=== PATIENT | female | born 1995 | race Caucasian/White ===

== ENCOUNTER 2016-08-25 23:05 | Inpatient (IN) | payer MEDICAID ==
[~2016-08-25] VITALS: Ht 165.1 cm; Wt 64.0 kg
[2016-08-25 23:10] VITALS: Ht 165.1 cm; Wt 64.0 kg
[2016-08-25 23:13] VITALS: BP 122/68; PULSE 82; RESP 18
[2016-08-25] MEDS ORDERED: FERR134T PO (23:24)
[2016-08-25] MEDS ORDERED: CALC600T11 PO (23:24)
[2016-08-25] MEDS ORDERED: PRENAT PO (23:24)
[2016-08-26] MEDS ORDERED: IBUPROFEN 600 MG TAB PO PRN
[2016-08-26] MEDS ORDERED: AMPICILLIN 2 GM/NS (PMX) 100 ML IV ONE
[2016-08-26] MEDS ORDERED: BUTORPHANOL 2 MG INJ IV PRN
[2016-08-26] MEDS ORDERED: LIDOCAINE 1% (MPF) 30 ML INJ INJ PRN
[2016-08-26] MEDS ORDERED: OXYTOCIN 30 UNITS/LR 500 ML IV SCH ×2
--- NOTE | 2016-08-26 00:11 | TRIAGE ---
OB Triage Datetime Report Generated by CPN: 08/26/2016 00:11 Datetime: 08/25/2016 23:37 Labor Evaluation Frequency: 2-4 Monitor Mode: External Duration (sec)2399: 60 Quality: Moderate Pattern: Normal: <= 5 Contractions in 10 Minutes Resting Tone [place]: Relaxed Heart Rate FHR Baseline Rate: 140 Monitor Mode: External US FHR Baseline Changes: No Baseline Change Variability: Moderate 6-25 bpm Accelerations: 15X15 Decelerations: None Category: Category I Vaginal Exam Dilatation (cms): 3.0 Effacement (%): 80 Station: -2 Exam By: E Jonas Membrane Status: Intact Vaginal Bleeding: Small Cervix, Consistency: Soft Cervix, Position: Midposition Presentation 'A': Cephalic Datetime: 08/25/2016 23:14 Maternal Assessment Level of Consciousness: Fully Conscious Headache: Denies Blurred Vision: No Nausea/Vomiting: Denies RUQ Epigastric Pain: Denies Facial Edema: None Monitor Mode: External Resting Tone [place]: Relaxed Monitor Mode: External US Comments: 150 Pain Assessment Pain Scale: 6 Pain Presence: Intermittent Pain Type: Contraction Pain Location: Abdomen Datetime: 08/25/2016 23:09 Time of Arrival: 08/25/2016 23:00 EGA: 38.1 Arrived By: Wheelchair Arrived From: Home Chief Complaint: w/ c/o ucs and spotting. No PNR available. Denies hx problems this . States had care in [place] until 1 month ago Movement: Present Contractions: Regular Time Contractions Began: 08/25/2016 21:00 Contractions: Q5 Rupture of Membranes: Denies Vaginal Bleeding: Scant Vaginal Discharge: Present Recent Sexual Intercouse: Denies Abdominal Trauma: Not Applicable Patient Complaints: Contractions Time Provider Notified: 08/25/2016 23:55 Provider Notified: Dr Eli Initial Plan: BEBE CARTAGENA
[2016-08-26] MEDS: LACTATED RINGER'S 1,000 ML IV SCH ×4 (01:00→14:44)
[2016-08-26] MEDS ORDERED: LACTATED RINGER'S 1,000 ML IV PRN (01:00)
[2016-08-26 01:05] LABS: ADD SCAN DIFF NO
[2016-08-26 01:08] LABS: BASOPHILS % 0.1 % (0.0-2.0); EOSINOPHILS % 0.1 % (0.0-7.0); HEMATOCRIT 34.5 % (37.0-47.0); HEMOGLOBIN 11.8 g/dl (12.0-16.0); LYMPHOCYTES # 3.3 10^3/ul (0.8-2.9); LYMPHOCYTES % 25.8 % (18.0-55.0); MEAN CORPUSCULAR HEMOGLOBIN 30.2 pg (29.0-33.0); MEAN CORPUSCULAR HGB CONC 34.2 g/dl (32.0-37.0); MEAN CORPUSCULAR VOLUME 88.2 fl (72.0-104.0); MEAN PLATELET VOLUME 10.9 fl (7.4-10.4); NEUTROPHIL # 8.4 10^3/ul (1.6-7.5); NEUTROPHILS % 65.6 % (30.0-74.0); PLATELET COUNT 204 10^3/UL (140-415); RED BLOOD COUNT 3.91 10^6/ul (4.20-5.40); RED CELL DISTRIBUTION WIDTH 12.5 % (11.5-14.5); WHITE BLOOD COUNT 12.8 10^3/ul (4.8-10.8)
[2016-08-26 01:19] LABS: INR 0.93; PROTIME 12.5 Sec (12.2-14.2)
[2016-08-26 01:20] LABS: PARTIAL THROMBOPLASTIN TIME 28.9 Sec (25.0-35.0)
[2016-08-26 01:50] LABS: BENZODIAZEPINES Negative (NEGATIVE); CANNABINOIDS Negative (NEGATIVE); COCAINE Negative (NEGATIVE); OPIATES Negative (NEGATIVE)
--- NOTE | 2016-08-26 01:51 | RADRPT ---
PROCEDURE: US OB. CLINICAL INDICATION: Estimated weight, labor. Clinical estimate gestational age is 38 weeks 2 days with estimated date of delivery 09/07/2016 TECHNIQUE: Multiple sonographic images of the pelvis were obtained. Transabdominal imaging only w as performed. The images were reviewed on a PACS workstation. COMPARISON: No prior studies are available for comparison. FINDINGS: There is a single live intrauterine gestation. Cardiac activity is present with 174 beats per minut e. There is a cephalic presentation. Measurements were made in order to determine age. The results are as follows: BPD = 9.11 cm, 37 weeks 0 days HC = 32.05 cm, 36 weeks 1 day AC = 32.39 cm, 36 weeks 2 days FL = 7.18 cm, 36 weeks 5 days. Estimated gestational age of approximately 36 weeks 4 days. The estimated date of delivery is 09/19/2016 The EFW = 2948 g, 6 pounds 8 ounces, 20.4%. The placenta is anterior and grade II. There is no evidence for an abruption. IMPRESSION: 1. Single live intrauterine gestation of approximately 36 weeks 4 days based on ultrasound measurem ents. 2. The estimated date of delivery is 09/19/2016. RPTAT: HJES .Chauncey Bailey MD, Date Time Electronically viewed and signed by .Chauncey Bailey MD, MD on 08/26/2016 01:50 .S/
[2016-08-26 02:19] LABS: BARBITURATES Negative (NEGATIVE)
[2016-08-26] MEDS: AMPICILLIN 1 GM/NS (PMX) 50 ML IVPB SCH ×4 (05:02→21:24)
[2016-08-26] MEDS ORDERED: MINERAL OIL LIGHT 10 ML VIAL TOP ONE (10:00)
[2016-08-26] MEDS ORDERED: FENTAnyl 2MCG/ML-ROPIV 0.2% 100 ML ONE (14:29)
[2016-08-26] MEDS ORDERED: NALOXONE (0.4 MG/ML) INJ IV PRN (15:00)
[2016-08-26] MEDS ORDERED: ONDANSETRON 4 MG INJ IV PRN (15:00)
[2016-08-26] MEDS ORDERED: FENTAnyl 2MCG/ML-ROPIV 0.2% 100 ML BAG EPI SCH (15:00)
--- NOTE | 2016-08-26 20:52 | HP ---
Date/Time of Note Date/Time of Note DATE: 08/26/16 TIME: 20:49 OB - History Hx of Present Free Text/Dictation 20 y/o female admitted in early labor Chief Complaint: labor pains Estimated Due Date: Sep 07, 2016 : 1 Para: 0 Care: Limited Care Ultrasounds: Normal mid trimester US Medical Complications: None Past Family/Social History * Past Medical, Surgical, Family and Obstetric Histories reviewed from chart. Blood Type: A+ Rubella: immune RPR/VDRL: Negative GBS Status: Negative HBsAG: Negative OB Admission Exam Vital Signs Vital Signs Vital Signs Date Time Temp Pulse Resp B/P Pulse Ox O2 Delivery O2 Flow Rate FiO2 08/25/16 23:13 98.4 82 18 122/68 Room Air Physical Exam Cervical Dilatation: 3cm Effacement: 75% Station: -2 Membranes: Intact Heart Rate: 130's Accelerations: Accelerations Present Decelerations: No Decelerations Varibility: Moderate Contractions on Admission: < 5 Minutes Apart Date/Time Contractions Began: 08/26/2016 Frequency of Contractions: q 2-5 Duration: >60 seconds Intensity: Moderate Last 72 hours Lab Results CBC & BMP 08/25/16 00:45 OB Assessment/Plan Other Assessment: term gestation labor pains Other plan: proceed with spontaneous labor VASHTI STARKS MD Aug 26, 2016 20:51
--- NOTE | 2016-08-26 20:55 | LDN ---
Date/Time of Note Date/Time of Note DATE: 08/26/16 TIME: 20:52 Delivery Summary of a viable infant over intact perineum Placenta Delivered: Spontaneously, Intact & Complete Meconium: none Perineum intact?: Yes Perineal laceration repair: 2 X vestibular lacerations on R and L inner laboa minora were repaired with 2 0 Vicryl and 4 0 Chromic Anesthesia type: Epidural Estimated blood loss: 200 Sponge & Needle done & correct: Yes All needle counts correct: Yes Any foreign bodies felt in the: No Problems: Delivery Information Sex Infant Sex: female Apgars 1 Minute: 8 5 Minute: 9 Suctioning Nose & mouth suctioned at genevieve: Yes Delee suction performed: No Umbilical Cord Umbilical cord with: 3 Vessels Cord presentations: no nuchal cord Cord Blood was obtained: Yes Mother & Baby Disposition Disposition Mom & Baby to Maternity; Good: Yes (mother and baby were recovered in good condition ) Mom transferred to: Other (maternity ) Baby to NICU: Yes VASHTI STARKS MD Aug 26, 2016 20:55
[2016-08-26 22:45] VITALS: BP 127/71; PULSE 70; RESP 18
[2016-08-26 23:15] VITALS: BP 124/58; PULSE 63; RESP 18
[2016-08-26] MEDS ORDERED: MISOPROSTOL 200 MCG TAB PR PRN ×2 (23:30)
[2016-08-26] MEDS ORDERED: DIBUCAINE 1% 30 GM OINT PR PRN (23:30)
[2016-08-26] MEDS ORDERED: BENZOCAINE 20% 56 ML SPRAY TOP PRN (23:30)
[2016-08-26] MEDS ORDERED: WITCH HAZEL/GLYCERIN PAD PR PRN (23:30)
[2016-08-26] MEDS ORDERED: ZOLPIDEM 5 MG TAB PO PRN (23:30)
[2016-08-26] MEDS ORDERED: METHYLERGONOVINE 0.2 MG INJ IM PRN ×2 (23:30)
[2016-08-26] MEDS ORDERED: ACETAMINOPHEN/CODEINE #3 TAB PO PRN ×2 (23:30)
[2016-08-26] MEDS ORDERED: LANOLIN 7 GM TUBE TOP PRN (23:30)
[2016-08-26] MEDS ORDERED: OXYTOCIN 30 UNITS/LR 500 ML IV PRN ×2 (23:30)
[2016-08-26] MEDS ORDERED: CARBOPROST 250 MCG INJ IM PRN ×2 (23:30)
[2016-08-27] MEDS: CEPHALEXIN 500 MG CAP PO SCH ×5 (00:10→23:30)
[2016-08-27] MEDS: IBUPROFEN 600 MG TAB PO SCH ×5 (00:11→23:30)
[2016-08-27] MEDS: LACTATED RINGER'S 1,000 ML IV* SCH ×2 (01:37→08:35)
[2016-08-27 04:40] VITALS: BP 119/56; PULSE 77; RESP 18
[2016-08-27 08:06] LABS: ADD SCAN DIFF NO
[2016-08-27 08:30] VITALS: BP 126/62; PULSE 88; RESP 16
[2016-08-27 08:42] LABS: BASOPHILS % 0.2 % (0.0-2.0); EOSINOPHILS % 0.1 % (0.0-7.0); HEMATOCRIT 29.5 % (37.0-47.0); HEMOGLOBIN 9.8 g/dl (12.0-16.0); LYMPHOCYTES # 2.5 10^3/ul (0.8-2.9); LYMPHOCYTES % 19.8 % (18.0-55.0); MEAN CORPUSCULAR HEMOGLOBIN 29.9 pg (29.0-33.0); MEAN CORPUSCULAR HGB CONC 33.2 g/dl (32.0-37.0); MEAN CORPUSCULAR VOLUME 89.9 fl (72.0-104.0); MEAN PLATELET VOLUME 10.8 fl (7.4-10.4); MONOCYTE # 0.9 10^3/ul (0.3-0.9); NEUTROPHIL # 9.2 10^3/ul (1.6-7.5); NEUTROPHILS % 72.4 % (30.0-74.0); PLATELET COUNT 142 10^3/UL (140-415); RED BLOOD COUNT 3.28 10^6/ul (4.20-5.40); RED CELL DISTRIBUTION WIDTH 12.8 % (11.5-14.5); WHITE BLOOD COUNT 12.7 10^3/ul (4.8-10.8)
[2016-08-27] MEDS: MAGNESIUM HYDROXIDE 30ML CUP PO SCH ×2 (09:55→21:39)
[2016-08-27] MEDS: SENNA/DOCUSATE NA (8.6MG/50MG) TAB PO SCH ×2 (09:55→21:39)
[2016-08-27 12:45] VITALS: BP 129/68; PULSE 79; RESP 16
[2016-08-27 16:15] VITALS: BP 119/63; PULSE 80; RESP 16
--- NOTE | 2016-08-27 17:53 | DS ---
Date/Time of Note Date/Time of Note home next day DATE: 08/27/16 TIME: 17:52 Obstetrical Discharge Record Final Diagnosis Final Diagnosis: Term delivered Other Final Diagnosis S/P vaginal delivery Vaginal Delivery Obstetrical Delivery: Spontaneous, Laceration, Repaired Condition on Discharge Physical Assessment Last Vitals: see nurses notes Voiding: Yes Bowel Movement: Yes Breast: Soft, non-tender, Filling Fundus: Firm Abdomen and Incision: soft bs + Episiotomy: NA Calf Tenderness: No Patient Condition: Good VASHTI STARKS MD Aug 27, 2016 17:53
[2016-08-27 20:00] VITALS: BP 125/83; RESP 20
[2016-08-28 04:18] VITALS: BP 112/64; PULSE 79; RESP 20
[2016-08-28] MEDS: CEPHALEXIN 500 MG CAP PO SCH ×2 (05:18→12:23)
[2016-08-28] MEDS: IBUPROFEN 600 MG TAB PO SCH ×2 (05:18→12:23)
[2016-08-28 08:00] VITALS: BP_SYST 121; PULSE 74
[2016-08-28] MEDS: MAGNESIUM HYDROXIDE 30ML CUP PO SCH (08:44)
[2016-08-28] MEDS: SENNA/DOCUSATE NA (8.6MG/50MG) TAB PO SCH (08:44)
[2016-08-28] MEDS ORDERED: MEASLES,MUMPS,RUBELLA VACCINE INJ SC* ONE (09:00)
[2016-08-28] MEDS ORDERED: VARICELLA VACCINE LIVE/PF 1,350 UNIT/0.5 ML ML SC* ONE (09:00)
[2016-08-28] MEDS ORDERED: DIPHTH/TET/ACEL PERTUSS (ADULT) 0.5 ML VIAL IM* ONE (09:00)
[2016-08-28] MEDS ORDERED: INFLUENZA VIRUS VACCINE 0.5 ML SYG IM* ONE (12:00)
--- NOTE | 2016-08-28 14:01 | PD.PPDC ---
HOME COMPANION Discharge Instruction Provider Information Physician Information 20 y/o femalle had vaginal delivery Diagnosis Final Diagnosis: S/P vaginal delivery Condition Patient Condition: Good Diet Diet: Resume Regular Diet Activity/Restrictions Activity: Normal Activity May Shower Restrictions: Nothing in the Vagina Return to Work or School: Oct 13, 2016 Follow-up Follow-up with Physician: 4, Week/Weeks (in clinic) Return to clinic for OB Instructions: Breast Tenderness Depression VASHTI STARKS MD Aug 28, 2016 14:01
[2016-08-28] MEDS ORDERED: IBUP-1542 PO (14:02)
== END 2016-08-28 15:30 | disposition home or self-care (01) | DRG 775 ==
LOC: OBT 23:05 → L-D 23:06 → OBT 23:56 → L-D 23:56 → PP1 08-26 22:37
PROVIDERS: ADMIT Obstetrics & Gynecology; ATTEND Obstetrics & Gynecology
PROC: 10E0XZZ Delivery of Products of Conception, External Approach (ICD-10-PCS; principal; 2016-08-26)
PROC: 0HQ9XZZ Repair Perineum Skin, External Approach (ICD-10-PCS; 2016-08-26)
DX: O70.9 Perineal laceration during delivery, unspecified (principal); Z37.0 Single live birth; Z3A.38 38 weeks gestation of pregnancy
CPT/HCPCS: 62319; 76815; 80307; 85025; 85610; 85730; 86592; 86900; 86901; 87340; 90686; 90715; 90716; G0463; J0290; J2590; J3010; J7120

== ENCOUNTER 2016-09-02 11:38 | Emergency (ER) | payer MEDICAID ==
[~2016-09-02] VITALS: Ht 165.1 cm; Wt 55.5 kg
[~2016-09-02 11:38] MED LIST: CALC600T11 PO; FERR134T PO; IBUP-1542 PO; PRENAT PO
[2016-09-02 11:49] VITALS: Ht 165.1 cm; Wt 55.5 kg
[2016-09-02 13:55] LABS: ADD SCAN DIFF NO
[2016-09-02 14:01] LABS: BASOPHILS % 0.3 % (0.0-2.0); EOSINOPHILS # 0.2 10^3/ul (0.0-0.5); EOSINOPHILS % 1.6 % (0.0-7.0); HEMATOCRIT 37.1 % (37.0-47.0); HEMOGLOBIN 12.2 g/dl (12.0-16.0); LYMPHOCYTES # 2.3 10^3/ul (0.8-2.9); LYMPHOCYTES % 22.2 % (18.0-55.0); MEAN CORPUSCULAR HEMOGLOBIN 29.8 pg (29.0-33.0); MEAN CORPUSCULAR HGB CONC 32.9 g/dl (32.0-37.0); MEAN CORPUSCULAR VOLUME 90.7 fl (72.0-104.0); MEAN PLATELET VOLUME 9.6 fl (7.4-10.4); MONOCYTE # 0.7 10^3/ul (0.3-0.9); NEUTROPHIL # 7.2 10^3/ul (1.6-7.5); NEUTROPHILS % 68.7 % (30.0-74.0); PLATELET COUNT 270 10^3/UL (140-415); RED BLOOD COUNT 4.09 10^6/ul (4.20-5.40); RED CELL DISTRIBUTION WIDTH 12.8 % (11.5-14.5); WHITE BLOOD COUNT 10.5 10^3/ul (4.8-10.8)
[2016-09-02 14:02] LABS: ADD UMIC YES; URINE BILIRUBIN (Dip) 1+ (NEGATIVE); URINE BLOOD (Dip) 3+ (NEGATIVE); URINE COLOR YELLOW (YELLOW); URINE GLUCOSE (Dip) NEGATIVE (NEGATIVE); URINE KETONES (Dip) NEGATIVE (NEGATIVE); URINE LEUKOCYTE ESTERASE (Dip) 1+ (NEGATIVE); URINE NITRITE (Dip) NEGATIVE (NEGATIVE); URINE TOTAL PROTEIN (Dip) 1+ (NEGATIVE); URINE UROBILINOGEN (Dip) 1.0 E.U./dL (0.1-1.0)
[2016-09-02 14:08] LABS: POTASSIUM 3.5 mmol/L (3.5-5.1)
[2016-09-02 14:11] LABS: ALBUMIN/GLOBULIN RATIO 1.14; BILIRUBIN,INDIRECT 0.2 mg/dl (0-1.1); BILIRUBIN,TOTAL 0.2 mg/dl (0.2-1.3); CREATININE 0.49 mg/dl (0.44-1.00); TOTAL PROTEIN 7.5 g/dl (6.1-8.1)
[2016-09-02 14:12] LABS: CALCIUM 9.1 mg/dl (8.4-10.2)
[2016-09-02 14:27] LABS: BACTERIA,URINE FEW; ICTOTEST NEGATIVE (NEGATIVE); URINE RBCS >200 /HPF (0)
--- NOTE | 2016-09-02 14:43 | RADRPT ---
PROCEDURE: US Pelvis CLINICAL INDICATION: post bleeding TECHNIQUE: Multiple sonographic images of the pelvis were obtained utilizing a transabdominal and endovaginal technique. The images were reviewed on a PACS workstation. COMPARISON: None. FINDINGS: The uterus measures 11.2 x 8.3 x 10.4 cm. The endometrial echo complex measures 32 mm in thickness and is heterogeneous consistent with the reported history of recent delivery. No foci of increased vascularity are noted in the endometrium to suggest retained products of conception. Bilateral ovaries are not visualized. There are no abnormal adnexal masses. No significant pelvic free fluid is identified. IMPRESSION: Thickening of the endometrium consistent with the reported history of recent . There are n o foci of increased vascularity in the endometrium to suggest retained products of conception. Bilateral ovaries are not visualized. There are no abnormal adnexal masses. RPTAT: EE Physician Giselle Date Time Electronically viewed and signed by Physician Giselle on 09/02/2016 14:43 /
--- NOTE | 2016-09-02 15:59 | QN ---
Documentation Comment 20 y/o female S/P vaginal delivery 08/25/2016 here C/O passage of bleed clots and "something " coming out of her vagina. This service was asked to evaluate patient fir "retained product of conception". Patient had uneventful delivery and PP care PMH and PSH are unremarkable allergies and habits denied. On P/E:patient is N OT in acute distress general P/E is WNL as well as her VS pelvic : Cx is closed : patient has minimal lochia Uterus 10-12 weeks size: non tender U/S: NO PRODUCT OF CONCEPTION CBC: WBC is normal, asa well as HCT and Hgb A: DOUBT retained product or endometritis P: will D/C home on cytotes x 24 hours only F/U in clinic on VASHTI STARKS MD Sep 02, 2016 15:59
--- NOTE | 2016-09-02 16:00 | PD.PPDC ---
DYEING MACHINE TENDER Discharge Instruction Provider Information Physician Information 20 y/o female here to R/O POC: :RULED OUT Diagnosis Final Diagnosis: Probably subinvolution Condition Patient Condition: Good Diet Diet: Resume Regular Diet Activity/Restrictions Activity: Normal Activity May Shower Restrictions: Nothing in the Vagina Return to Work or School: Oct 13, 2016 Follow-up Follow-up with Physician: 2, Day/Days (in clinic for F?U ) Return to clinic for CHIROPRACTIC NEUROLOGIST Instructions: Fever greater than 101 Chills Excessive Vaginal Bleeding OB Instructions: Depression VASHTI STARKS MD Sep 02, 2016 16:00
[2016-09-02] MEDS ORDERED: MISO100T SL (16:02)
[2016-09-02 16:41] VITALS: BP 125/69; PULSE 76; RESP 19; TEMP 98.7
--- NOTE | 2016-09-02 19:34 | ERD ---
ER Documentation Chief Complaint Date/Time DATE: 09/02/16 TIME: 19:16 Chief Complaint mass coming out of vagina but will not pass HPI Patient is a 20-year-old female who presents to the emergency department with " a mass coming out of my vagina". Patient states that yesterday night she started having vaginal bleeding and noticed this mass. She denies any passage of blood clots. She states that the "mass" has remained in its position since she initially noticed it. Patient states she is having vaginal bleeding and thus far has used 2 pads for it. Patient denies any fevers however admits to chills. Patient States she does have some mild pelvic pain. Patient denies any nausea, vomiting, abdominal pain, dizziness, loss of consciousness. Of note , patient had a normal vaginal delivery 1 week ago at [facility]. Patient denies any immediate post complications. Patient states that her baby is healthy at this time. ROS All systems reviewed and are negative except as per history of present illness. Medications Home Meds Active Scripts Misoprostol* (Cytotec*) 100 Mcg Tablet, 400 MCG SL Q4 for 1 Day, TAB Prov:MARIELOS ENCINAS PA-C 09/02/16 Ibuprofen* (Ibuprofen*) 600 Mg Tablet, 600 MG PO Q6, #20 TAB 0 Refills Prov:VASHTI WINSTON MD 08/28/16 Reported Medications Ferrous Sulfate (Iron) 134 Mg Tablet, 134 MG PO DAILY, TAB 08/25/16 Calcium Carbonate* (Calcium Carbonate*) 600 MG Ca Tab, 600 MG PO DAILY, TAB 08/25/16 Multivit/Min/Fol Ac/Iron/Pren* ( S*) 1 Tab Tab, 1 TAB PO DAILY, TAB 08/25/16 Allergies Allergies: Coded Allergies: No Known Allergy (Unverified , 09/02/16) PMhx/Soc Medical and Surgical Hx: pt denies Medical Hx, pt denies Surgical Hx History of Surgery: No Anesthesia Reaction: No Hx Neurological Disorder: No Hx Respiratory Disorders: No Hx Cardiac Disorders: No Hx Psychiatric Problems: No Hx Miscellaneous Medical Probl: No Hx Alcohol Use: No Hx Substance Use: No Hx Tobacco Use: No Smoking Status: Never smoker Physical Exam Vitals Vital Signs Date Time Temp Pulse Resp B/P Pulse Ox O2 Delivery O2 Flow Rate FiO2 09/02/16 16:41 98.7 76 19 125/69 98 Room Air 09/02/16 11:49 97.7 69 18 126/82 96 Physical Exam GENERAL: Well-developed, well-nourished female. Appears in no acute distress. HEAD: Normocephalic, atraumatic. EYES: Pupils are equally reactive bilaterally. EOMs grossly intact. No conjunctival erythema. ENT: Moist mucous membranes. No uvula deviation. No kissing tonsils. NECK: Supple. No meningismus. Normal range of motion of the neck. LUNG: Clear to auscultation bilaterally. No rhonchi, wheezing, rales or coarse breath sounds. HEART: Regular rate and rhythm. No murmurs, rubs or gallops. ABDOMEN: No scars, ecchymosis or rashes noted. Soft, nontender, and nondistended. Positive bowel sounds in all four quadrants. No rebound tenderness , no guarding. (-) McBurney's point tenderness. No CVA tenderness. BACK: No midline tenderness. FEMALE GENITALIA: Exam was completed with a night shift manager present. Normal external female genitalia with bright red blood noted on labial folds. Dark red, large blood clot/retained products of conceptions? noted in vaginal vault. Patient refused speculum exam. EXTREMITIES: Equal pulses bilaterally. No peripheral clubbing, cyanosis or edema. No unilateral leg swelling. NEUROLOGIC: Alert and oriented. Moving all four extremities without any difficulty. Normal speech. Steady gait. SKIN: Normal color. Warm and dry. No rashes or lesions. Result Diagram: 09/02/16 1350 09/02/16 1350 Results 24 hrs Laboratory Tests Test 09/02/16 13:50 Alanine Aminotransferase (ALT/SGPT) 29IU/L Albumin 4.0g/dl Albumin/Globulin Ratio 1.14 Alkaline Phosphatase 178IU/L Anion Gap 21 Aspartate Amino Transf (AST/SGOT) 20IU/L Basophils # 0.010^3/ul Basophils % 0.3% Blood Urea Nitrogen 14mg/dl Calcium Level 9.1mg/dl Carbon Dioxide Level 24mmol/L Chloride Level 106mmol/L Creatinine 0.49mg/dl Direct Bilirubin 0.00mg/dl Eosinophils # 0.210^3/ul Eosinophils % 1.6% Globulin 3.50g/dl Glucose Level 92mg/dl Hematocrit 37.1% Hemoglobin 12.2g/dl Indirect Bilirubin 0.2mg/dl Lymphocytes # 2.310^3/ul Lymphocytes % 22.2% Mean Corpuscular Hemoglobin 29.8pg Mean Corpuscular Hemoglobin Concent 32.9g/dl Mean Corpuscular Volume 90.7fl Mean Platelet Volume 9.6fl Monocytes # 0.710^3/ul Monocytes % 7.0% Neutrophils # 7.210^3/ul Neutrophils % 68.7% Nucleated Red Blood Cells # 0.010^3/ul Nucleated Red Blood Cells % 0.0/100WBC Platelet Count 98495^3/UL Potassium Level 3.5mmol/L Red Blood Count 4.0910^6/ul Red Cell Distribution Width 12.8% Sodium Level 147mmol/L Total Bilirubin 0.2mg/dl Total Protein 7.5g/dl Urine Bacteria FEW Urine Bilirubin 1+ Urine Clarity CLEAR Urine Color YELLOW Urine Epithelial Cells FEW Urine Glucose NEGATIVE% Urine Hemoglobin 3+ Urine Ictotest NEGATIVE Urine Ketones NEGATIVE Urine Leukocyte Esterase 1+ Urine Microscopic RBC >200/HPF Urine Microscopic WBC 10-25/HPF Urine Nitrite NEGATIVE Urine Specific [place] >=1.030 Urine Total Protein 1+ Urine Urobilinogen 1.0 E.U./dL Urine pH 6.0 White Blood Count 10.510^3/ul Procedures/MDM ED COURSE: The patient was stable throughout ED course. I kept the patient and/or family informed of laboratory and diagnostic imaging results throughout the ED course. DIAGNOSTIC IMAGING: Read by radiologist. Patient: CHARY BONILLA : 1995 Age: 20 Sex: F [id number] DOS: 09/02/16 1413 Ordering MD: TEODORO CARPENTER PA-C Location: FTE Room/Bed: PROCEDURE: US Pelvis CLINICAL INDICATION: post bleeding TECHNIQUE: Multiple sonographic images of the pelvis were obtained utilizing a transabdominal and endovaginal technique. The images were reviewed on a PACS workstation. COMPARISON: None. FINDINGS: The uterus measures 11.2 x 8.3 x 10.4 cm. The endometrial echo complex measures 32 mm in thickness and is heterogeneous consistent with the reported history of recent delivery. No foci of increased vascularity are noted in the endometrium to suggest retained products of conception. Bilateral ovaries are not visualized. There are no abnormal adnexal masses. No significant pelvic free fluid is identified. IMPRESSION: Thickening of the endometrium consistent with the reported history of recent . There are no foci of increased vascularity in the endometrium to suggest retained products of conception. Bilateral ovaries are not visualized. There are no abnormal adnexal masses. RPTAT: EE Santosh Singh Physician Date Time Electronically viewed and signed by Santosh Singh Physician on 09/02/2016 14:43 RA/ CC: TEODORO CARPENTER PA-C MEDICAL DECISION MAKING: Patient is 19-year-old female who presents with concerns for "a mass coming out of my vagina". Patient states that she noticed this "mass" yesterday. Patient also reporting vaginal bleeding which started yesterday. Patient recently had a vaginal delivery approximately 1 week ago. Patient denied any immediate post / post delivery complications. Vital signs were reviewed. Patient is afebrile. Patient was not hypoxic. Patient was hemodynamically stable. CBC showed no evidence of systemic infection or severe anemia. CMP showed no evidence of electrolyte abnormalities, severe acidosis, alkalosis, renal failure , or liver disease. Pelvic ultrasound showed Single viable intrauterine gestation of approximately 15 weeks and 0 days based on ultrasound measurements. Given the patient's physical exam findings of large blood clot versus retained products, the laborist on-call was contacted. The laborist nutrition associate advised me to call the patient's BATTERY STARTER, Dr. Winston. Dr. Winston was consulted on this case. Dr. Winston examined the patient and stated that she no longer had the clot-appearing object. It appeared that the patient passed this object as it was noted on the patient's gurney. Large 5-6 inches long, dark red blood clot was noted. Dr. Winston advised that the patient should be discharged with a prescription for Cytotec. Prescription was inputted into EMR/ written by Marielos Encinas PA-C, per Dr. Winston 's request, given that he did not have ED EMR access and that I was at unavailable at the time. Urinalysis shows that patient had 1+ leukocyte esterase, 10-25 WBCs, positive hemoglobin, positive RBCs. Patient was given a prescription for Keflex. This prescription was handwritten by myself given that the patient was discharged prior to receiving this prescription and the patient's departure paperwork was closed. At this time, the patient's presentation is most consistent with UTI and hemorrhage. Low suspicion for pyelonephritis, nephrolithiasis. Low suspicion for endometritis, endometriosis, retained products of conception, eclampsia. PRESCRIPTION: Cytotec, Keflex DISCHARGE: At this time, patient is stable for discharge and outpatient management. I have instructed the patient to follow-up with her OBGYN in 1-2 days. I have discussed with the patient the possibility of needing to see a specialist for further workup and imaging studies if symptoms persist. I have instructed the patient to promptly return to the ER for any new or worsening symptoms including increased pain, fever, nausea, vomiting, weakness or LOC. The patient and/or family expressed understanding of and agreement with this plan. All questions were answered. Home care instructions were provided. MEDICAL DECISION MAKING: Patient is a []. Vital signs were reviewed. Patient is afebrile. Patient was not hypoxic. Patient was hemodynamically stable. CBC showed no evidence of systemic infection or severe anemia. CMP showed no evidence of electrolyte abnormalities, severe acidosis, alkalosis, renal failure , or liver disease. Lipase showed no evidence of acute pancreatitis. UA showed no evidence of acute infection or hematuria. Low suspicion for UTI, pyelonephritis or nephrolithiasis. Urine test was negative. PRESCRIPTION: DISCHARGE: At this time, patient is stable for discharge and outpatient management. I have instructed the patient to follow-up with his/her primary care physician in 1-2 days. I have discussed with the patient the possibility of needing to see a specialist for further workup and imaging studies if symptoms persist. I have instructed the patient to promptly return to the ER for any new or worsening symptoms including increased pain, fever, nausea, vomiting, weakness or LOC. The patient and/or family expressed understanding of and agreement with this plan. All questions were answered. Home care instructions were provided. Departure Diagnosis: Primary Impression: hemorrhage hemorrhage type: unspecified Qualified Code: O72.1 - hemorrhage, unspecified type Condition: Stable Patient Instructions: Discharge Additional Instructions: Call your primary care doctor/OBGYN TOMORROW for an appointment during the next 1-2 days.See the doctor sooner or return here if your condition worsens before your appointment time. TEODORO CARPENTER PA-C Sep 02, 2016 19:26
== END 2016-09-02 16:38 | disposition home or self-care (01) ==
LOC: FTE 11:38
DX: O72.2 Delayed and secondary postpartum hemorrhage (principal)
CPT/HCPCS: 36415; 76856; 80053; 81001; 81003; 85025; 86900; 86901